=== PATIENT | female | born 1985 | race Caucasian/White ===

== ENCOUNTER → 2016-11-21 | Outpatient (CLI) | payer OTHER | LOC: FIMAGING 10:27 | PROVIDERS: ATTEND Obstetrics & Gynecology | DX: Z34.82 Encounter for supervision of other normal pregnancy, second trimester (principal); Z3A.19 19 weeks gestation of pregnancy ==

== ENCOUNTER 2018-03-26 08:20 | Day surgery (SDC) | payer OTHER ==
--- NOTE | 2018-03-23 14:58 | GHP ---
[f rep st] PREOP HISTORY AND PHYSICAL DATE OF ADMISSION: 03/26/2018 ADMITTING DIAGNOSIS: Missed at 9 weeks and 3 days. HISTORY OF PRESENT ILLNESS: Patient is a 33-year-old 4, para 2-0-1-2 at 10 weeks 5 days by last menstrual period 01/04/2018. The patient presented for her new OB visit. She has previous uncomplicated vaginal deliveries x2. Denies any spotting, leakage of fluid, vaginal bleeding, or cramping at this time. She is tolerating vitamins. Reviewed initial labs and all normal. Genetic testing is pending. Pap, chlamydia, and gonorrhea cultures collected. A bedside ultrasound was done in the office and no heart rate was noted and size looked less than dates. So a formal ultrasound was done, both transabdominally and transvaginally, that revealed a single intrauterine at 9 weeks and 3 days, size less than dates by 9 days, with no heart rate. Previous ultrasound on 03/06 showed a single living IUP with heart rate 167 beats per minute, size less than days by 3 days, but the yolk sac did appear partially collapsed. Prior to that, an ultrasound was done on showing a single living IUP with a heart rate of 84 beats per minute, size less than days by 6 days. The patient was given condolences ad discussed this was consistent with a missed AB. The patient is A positive. Treatment options were discussed including conservative management with observation versus medical management with Cytotec versus surgical management, suction D and C. The patient discussed options with her , Herman, and called my office stating she wanted a D&C. Miscarriage precautions were given to the patient. PAST OB HISTORY: In 2013, she had a SAB that required a D and C. In 2014, she delivered a viable male , via vaginal delivery at 39 weeks 6 days, weighing 6 pounds 10 ounces. In 2014, she had another viable male infant, vaginal delivery, born at 38 weeks and 4 days, measuring 6 pounds 6 ounces. 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 Cycles every 28 days for 4 days. LMP is 01/04/2018. She had a positive test 02/26/2018. Denies any abnormal pap smears and exposure to any STDs. CURRENT MEDICATIONS: Include vitamins, DHEA, B12 supplement. ALLERGIES: No known drug allergies. PAST MEDICAL HISTORY: Viral meningitis age 15. PAST SURGICAL HISTORY: D and C secondary to SAB in 2013; right shoulder surgery in 2004. PAST FAMILY HISTORY: Paternal grandfather from lung cancer. SOCIAL HISTORY: Patient is . She lives with her and their 2 sons. She denies a history of tobacco or illicit drug use and prior to had social alcohol use about 2 times a week. 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 REVIEW OF SYSTEMS: 10-point review of systems is negative. Pertinent positives noted in HPI. LABORATORY: Quant HCG of 52,441 on 02/26 and 57,649 on 02/28. A positive, antibody negative. H and H, 14.9 and 43.1. Platelets 240. Hepatitis surface antigen negative. HIV negative. Rubella immune. RPR nonreactive. PHYSICAL EXAMINATION: VITAL SIGNS: Stable. Patient is afebrile. GENERAL APPEARANCE: Well-nourished, well-developed female, alert, oriented x3 in no apparent distress. SKIN: Warm, dry, without rash. LUNGS: Clear to auscultation. CARDIOVASCULAR: Regular rate and rhythm. ABDOMEN: Soft, nontender, nondistended. PELVIC: There is no active bleeding noted. Cervix is closed. EXTREMITIES: Normal to inspection without calf tenderness or edema. ASSESSMENT/PLAN: Patient is a 33-year-old 4, para 2-0-1-2, with a Missed at 9 weeks 3 days. 1. Admit to labor and delivery for suction D&C. 2. Bedside consents were obtained. We discussed risks of the procedure including, but not limited to, bleeding, infection, and risk of uterine perforation. The patient understands all risks at this time and wants to proceed with surgery. 3. Patient is A positive. No RhoGAM is needed. 4. Antibiotics continuity tester to OR. 5. SCDs for DVT prophylaxis. /[id number]/MODL MTDD
[2018-03-26] MEDS ORDERED: LR 1,000 ML IV ONE (08:59)
[2018-03-26] MEDS ORDERED: DOXYCYCLINE HYCLATE 100 MG CAP/TAB PO ONE ×2 (08:59)
--- NOTE | 2018-03-26 09:57 | PDHPUP ---
History & Physical Update H&P update statement: This history and physical update is based on an assessment of the patient which was completed after admission or registration (within 24 hours), but prior to the surgery/procedure. H&P update: H&P reviewed & patient examined, no change in patient's condition since H&P completed
[2018-03-26] MEDS ORDERED: MIDAZOLAM 2 MG/2 ML VIAL ONE (10:59)
[2018-03-26] MEDS ORDERED: fentaNYL 100 MCG/2 ML INJ ONE ×2 (11:13→12:06)
[2018-03-26] MEDS ORDERED: PROPOFOL/EMULSION 500 MG/50 ML BOTTLE IV ONE (11:13)
[2018-03-26] MEDS ORDERED: DEXAMETHASONE 4 MG/ML VIAL ONE ×2 (11:51)
[2018-03-26] MEDS ORDERED: LIDOCAINE 2% 5 ML SDV ONE (11:51)
[2018-03-26] MEDS ORDERED: KETOROLAC 30 MG/1 ML SDV ONE (11:51)
[2018-03-26] MEDS ORDERED: ONDANSETRON 4 MG/2 ML VIAL ONE (11:51)
--- NOTE | 2018-03-26 11:57 | POSTOPPROG ---
Post Op Note Date of Operation: 03/26/18 Surgeon: Tammy Love Qa Test Lead: None Anesthesiologist: Jake Ojeda Anesthesia: IV Sedation, LMA Pre-op Diagnosis: Missed Ab at 9 3/7 wks Post-op Diagnosis: Missed Ab at 9 3/7 wks Indication: 33 y/o with missed ab at 9 3/7 wks, desires surgical treatment Procedure: Suction D&C Findings: No active bleeding. Cervix dilated 2-3cm. Uterus sounded 10 cm. Mod POCs. Inf/Abcess present in the surg proc area at time of surgery?: No Depth: Organ Space EBL: 50-100 (100 cc) Total fluids administered: 1200 cc LR Complications: None Specimen(s): POCs
[2018-03-26 14:50] VITALS: BP 96/56
[2018-03-26] MEDS ORDERED: HYDROCODONE/APAP 5/325 TAB PO PRN (14:51)
[2018-03-26] MEDS ORDERED: ONDANSETRON 4 MG/2 ML VIAL IVP PRN (14:51)
[2018-03-26] MEDS ORDERED: fentaNYL 100 MCG/2 ML INJ IVP PRN (14:51)
--- NOTE | 2018-03-26 14:57 | PDANEPAE ---
ANE History of Present Illness Missed Ab. ANE Past Medical History - Cardiovascular History Hx Hypertension: No Hx Arrhythmias: No Hx Chest Pain: No Hx Coronary Artery / Peripheral Vascular Disease: No Hx CHF / Valvular Disease: No Hx Palpitations: No - Pulmonary History Hx COPD: No Hx Asthma/Reactive Airway Disease: No Hx Recent Upper Respiratory Infection: No Hx Oxygen in Use at Home: No Hx Sleep Apnea: No Sleep Apnea Screening Result - Last Documented: Negative - Endocrine History Hx Diabetes: No Hypothyroid: No Hyperthyroid: No Obesity: no - Surgical History Prior Surgeries: Knee surgery with general anesthesia. ANE Review of Systems Review of Systems: ANE Patient History - Allergies Allergies/Adverse Reactions: No Known Allergies Allergy (Unverified 10/23/15 18:52) - Home Medications Home Medications: NK [No Known Home Meds] 10/23/15 [Last Taken Unknown] - NPO status NPO Since - Liquids (Date): 03/25/18 NPO Since - Liquids (Time): 22:00 NPO Since - Solids (Date): 03/25/18 NPO Since - Solids (Time): 19:00 - Anes Hx Anes Hx: no prior problems - Smoking Hx Smoking Status: Never smoked - Family Anes Hx Family Anes Hx: neg - N/A ANE Labs/Vital Signs - Vital Signs Blood Pressure: 96/56 Heart Rate: 48 Respiratory Rate: 16 O2 Sat (%): 98 Height: 165.1 cm Weight: 61.235 kg ANE Physical Exam - Airway Neck exam: FROM Mallampati Score: Class 1 Mouth exam: normal dental/mouth exam - Pulmonary Pulmonary: no respiratory distress - Cardiovascular Cardiovascular: regular rate and rhythym - ASA Status ASA Status: I ANE Anesthesia Plan Anesthesia Plan: GA with mask
--- NOTE | 2018-03-26 14:58 | POSTANESTH ---
Post Anesthetic Evaluation Cardiovascular Status: Normal, Stable Respiratory Status: Normal, Stable Level of Consciousness/Mental Status: Can Participate in Eval Pain Control: Adequate, Prn Tx Ordered Nausea/Vomiting Control: Adequate, Prn Tx Ordered Complications Possibly Related to Anesthesia: None Noted
--- NOTE | 2018-03-27 01:46 | GOP ---
[f rep st] OPERATIVE REPORT DATE OF OPERATION: 03/26/2018 SURGEON: Tammy Love DO RETAIL BAKERY MANAGER: None. ANESTHESIA: LMA. ANESTHESIOLOGIST: Jake Ojeda MD. PREOPERATIVE DIAGNOSIS: Missed at 9 weeks and 3 days. POSTOPERATIVE DIAGNOSIS: Missed at 9 weeks and 3 days. PROCEDURE PERFORMED: Suction dilatation and curettage. FINDINGS: Uterus was enlarged to about 9-10 week size. No active bleeding noted. Cervix was dilated to about 2-3 cm, again with no bleeding. Uterus gently sounded to 9-10 cm. A curved #8 suction curette was used. Moderate products of conception were noticed. Minimal bleeding noted at the end the procedure. Patient is Rh positive. No RhoGAM needed. ESTIMATED BLOOD LOSS: 100 cc. INDICATIONS: Patient is a 33-year-old, 4, para 2-0-1-2, at 10 weeks, 5 days by last menstrual period 01/04/2018. She presented for a new OB visit. She had previous uncomplicated vaginal deliveries x2. Patient just had all her blood work done as well as genetic testing. A bedside ultrasound was done in the office and no heart rate was noted, and size looked less than dates. Formal ultrasound was done both transabdominally and transvaginally which revealed a single IUP at 9 weeks, 3 days, size less than dates by 9 days with no heart rate, consistent with a missed AB. Condolences were given to the patient. We discussed treatment options, including conservative management with observation versus medical management with Cytotec versus surgical management with suction D and C. Patient discussed options with her and called my office stating she wanted a suction D and C. Surgical consents were obtained with the patient at bedside. Discussed risks, benefits, and alternatives of the procedure including but not limited to, bleeding, infection , and risk of uterine perforation. Patient understands all risks of the procedure and wants to proceed at this time. The patient was properly consented. DESCRIPTION OF PROCEDURE: Patient was taken back to the operating room where anesthesia was administered without difficulty. She was then positioned in the dorsal lithotomy position, and prepped and draped in the normal sterile fashion. Once the anesthetic was found to be adequate, a bimanual exam was performed under anesthesia. Uterus was noted to be about 9-10 week size, with no adnexal masses. Next, an open-ended speculum was placed in the vagina. The anterior lip of the cervix was grasped with Allis clamp. Patient was already dilated to 2-3 cm, so no cervical dilation was needed. The uterus was then gently sounded to 9-10 cm. At this time, a size 8 curved suction curette was used. It was connected to suction and placed in the cervix and gently up to the uterus, and a suction curettage was performed. Multiple passes were made with the suction curettage. Next, a sharp curettage was performed. This was done in all 4 quadrants of the uterus until a gritty texture was noted. It was done under ultrasound guidance at the beside. There was a moderate amount of tissue obtained. We then followed with more pass with suction curettage under ultrasound and it appeared that all products of conception were removed with a thin endometrial stripe. Minimal bleeding was noted. After the procedure, all instruments were removed from the vagina, and the cervix appeared hemostatic. Speculum was removed. Patient had received oral doxycycline 100 mg prior to the procedure and again in the PACU. Patient tolerated the procedure well. No complications. All sponge and instrument counts were correct x2. Patient was then taken out of dorsal lithotomy position, awakened, and taken to PACU in stable condition. TOTAL IV FLUIDS: 1200 cc LR. URINE OUTPUT: Patient emptied her bladder prior to the procedure. SPECIMENS: Products of conception. /[id number]/MODL MTDD
--- NOTE | 2018-03-27 15:42 | ASDISCHSUM ---
Discharge Information Plan Status:Home with No Needs Medically Cleared to Leave:03/26/2018 Discharge Date:03/26/2018 02:00 PM CM D/C Disposition:Home, Routine, Self-Care ADT D/C Disposition:Home, Routine, Self-Care Projected Discharge Date:03/26/2018 12:00 AM Transportation at D/C:Self Discharge Delay Reason: Follow-Up Date:03/26/2018 12:00 AM Discharge Slot: Final Diagnosis: Placement Information Patient Contact Information Contact Name:KP Relationship: Address:[address] Work Phone: City:[place] Alternate Phone: [facility]/Zip Code:[place] [address] Email: Financial Information Financial Class:HMO and PPO Plans Primary Plan Desc:[employer] Primary Plan Number:[id number] Secondary Plan Desc: Secondary Plan Number: Assessment Information Intervention Information
== END 2018-03-26 13:10 | disposition home or self-care (01) ==
LOC: FSGY 08:20 → FLD 08:59 → UNDOADMOB 08:59 → FOBOP 13:10
PROVIDERS: ATTEND Obstetrics & Gynecology
PROC: 10D17ZZ Extraction of Products of Conception, Retained, Via Natural or Artificial Opening (ICD-10-PCS; principal; 2018-03-26)
DX: O02.1 Missed abortion (principal); Z3A.09 9 weeks gestation of pregnancy
CPT/HCPCS: J1100; J1885; J2250; J2405; J2704; J3010

== ENCOUNTER 2018-12-30 19:26 | Emergency (ER) | payer OTHER ==
[2018-12-30] MEDS ORDERED: PROMETHAZINE HCL 25 MG/ML INJ IVP ONE (20:12)
[2018-12-30] MEDS ORDERED: NS 1,000 ML IV ONE ×2 (20:12)
--- NOTE | 2018-12-30 20:12 | EDPHY ---
H & P Time Seen by Provider: 12/30/18 19:44 HPI/ROS: Chief complaint. Nausea vomiting HPI. Patient is a 33-year-old female who is 34 weeks . She developed nausea and vomiting this morning. Maybe a low-grade temp to 99 degrees during the day. Unable to keep fluids down despite Zofran twice today. She feels dehydrated. No sore throat or upper respiratory symptoms. No cough for shortness of breath. No chest pain. No abdominal pain cramping. No vaginal bleeding or spotting. Decreased urination but otherwise no urinary symptoms. Patient feels possibly decreased movement today. ROS 10 systems were reviewed and negative with the exception of the elements mentioned in the history of present illness Past Medical/Surgical History: Shoulder surgery, D&C, vaginal delivery x2 Social History: , nonsmoker, no alcohol Smoking Status: Never smoked Physical Exam: General Appearance: Alert well-developed female mild distress vital signs stable Eyes: Pupils equal and round no pallor or injection. ENT, mucous membranes are dry. Pharynx without injection Respiratory: There are no retractions, lungs are clear to auscultation. Cardiovascular: Regular rate and rhythm. Gastrointestinal: Abdomen is soft and nontender, no masses, bowel sounds normal. Gravid uterus but nontender Neurological: Awake and alert, sensory and motor exams grossly normal. Skin: Warm and dry, no rashes. Musculoskeletal: Neck is supple nontender. Extremities symmetrical, full range of motion. Psychiatric: Patient is oriented X 3, there is no agitation. Constitutional: Initial Vital Signs Temperature (C) 37.2 C 12/30/18 19:29 Heart Rate 81 12/30/18 19:29 Respiratory Rate 18 12/30/18 19:29 Blood Pressure 116/68 12/30/18 19:29 O2 Sat (%) 96 12/30/18 19:29 O2 Delivery Mode Room Air Allergies/Adverse Reactions: No Known Allergies Allergy (Verified 12/30/18 19:33) Home Medications: Medication Instructions Recorded Tylenol 12/30/18 Zofran Odt 4 mg (*) 12/30/18 Medical Decision Making Procedures: IV normal saline. Phenergan for nausea vomiting ED Course/Re-evaluation: heart tones 150 I consulted discussed case with Dr. Bennett for OBGYN who sees the patient in the ED Patient had monitoring in the ED which was normal. Patient has been up to the bathroom to urinate. She still nauseated and did have a small emesis. She and I discussed keeping her in the hospital. She would really like to be discharged and follow up with her doc tomorrow. We discussed using Phenergan. She is in agreement Differential Diagnosis: Nausea vomiting with . I considered electrolyte abnormality, urinary traction infection, jeopardy to - Data Points Laboratory Results: Laboratory Results 12/30/18 19:51 12/30/18 19:51 12/30/18 12/30/18 12/30/18 21:30 19:51 19:51 WBC 11.52 10^3/uL H 10^3/uL (3.80-9.50) RBC 4.86 10^6/uL 10^6/uL (4.18-5.33) Hgb 14.9 g/dL g/dL (12.6-16.3) Hct 42.3 % % (38.0-47.0) MCV 87.0 fL fL (81.5-99.8) MCH 30.7 pg pg (27.9-34.1) MCHC 35.2 g/dL g/dL (32.4-36.7) RDW 13.1 % % (11.5-15.2) Plt Count 228 10^3/uL 10^3/uL (150-400) MPV 11.2 fL fL (8.7-11.7) Neut % (Auto) 92.1 % H % (39.3-74.2) Lymph % (Auto) 4.5 % L % (15.0-45.0) Pettis % (Auto) 2.3 % L % (4.5-13.0) Eos % (Auto) 0.3 % L % (0.6-7.6) Baso % (Auto) 0.2 % L % (0.3-1.7) Nucleat RBC Rel Count 0.0 % % (0.0-0.2) Absolute Neuts (auto) 10.61 10^3/uL H 10^3/uL (1.70-6.50) Absolute Lymphs (auto) 0.52 10^3/uL L 10^3/uL (1.00-3.00) Absolute Monos (auto) 0.26 10^3/uL L 10^3/uL (0.30-0.80) Absolute Eos (auto) 0.03 10^3/uL 10^3/uL (0.03-0.40) Absolute Basos (auto) 0.02 10^3/uL 10^3/uL (0.02-0.10) Absolute Nucleated RBC 0.00 10^3/uL 10^3/uL (0-0.01) Immature Gran % 0.6 % % (0.0-1.1) Immature Gran # 0.07 10^3/uL 10^3/uL (0.00-0.10) RBC/WBC/PLT Morphology TNP Platelet Estimate TNP Sodium 132 mEq/L L mEq/L (135-145) Potassium 3.9 mEq/L mEq/L (3.5-5.2) Chloride 102 mEq/L mEq/L (97-110) Carbon Dioxide 21 mEq/l L mEq/l (22-31) Anion Gap 9 mEq/L mEq/L (6-14) BUN 9 mg/dL mg/dL (7-23) Creatinine 0.5 mg/dL L mg/dL (0.6-1.0) Estimated GFR > 60 Glucose 77 mg/dL mg/dL (70-100) Calcium 8.6 mg/dL mg/dL (8.5-10.4) Urine Color YELLOW Urine Appearance MODERATELY TURBID Urine pH 7.0 (5.0-7.5) Ur Specific Seymour 1.008 (1.002-1.030) Urine Protein NEGATIVE (NEGATIVE) Urine Ketones 2+ H (NEGATIVE) Urine Blood NEGATIVE (NEGATIVE) Urine Nitrate NEGATIVE (NEGATIVE) Urine Bilirubin NEGATIVE (NEGATIVE) Urine Urobilinogen NEGATIVE EU EU (0.2-1.0) Ur Leukocyte Esterase NEGATIVE (NEGATIVE) Urine RBC 1-3 /hpf /hpf (0-3) Urine WBC 3-5 /hpf H /hpf (0-3) Ur Epithelial Cells 3+ /lpf H /lpf (NONE-1+) Urine Bacteria 3+ /hpf H /hpf (NONE SEEN) Urine Mucus TRACE /lpf /lpf (NONE-1+) Urine Glucose NEGATIVE (NEGATIVE) Medications Given: Discontinued Medications Sodium Chloride (Ns) 1,000 mls @ 0 mls/hr IV EDNOW ONE; Wide Open PRN Reason: Protocol Stop: 12/30/18 20:13 Last Admin: 12/30/18 20:18 Dose: 1,000 mls Sodium Chloride (Ns) 1,000 mls @ 0 mls/hr IV EDNOW ONE; Wide Open PRN Reason: Protocol Stop: 12/30/18 20:13 Last Admin: 12/30/18 20:18 Dose: 1,000 mls Ondansetron HCl (Zofran) 4 mg IVP EDNOW ONE Stop: 12/30/18 21:21 Last Admin: 12/30/18 21:22 Dose: 4 mg Promethazine HCl (Phenergan) 12.5 mg IVP EDNOW ONE Stop: 12/30/18 20:13 Last Admin: 12/30/18 20:19 Dose: 12.5 mg Promethazine HCl (Phenergan 25 Mg Prepack #4) 1 btl TAKEHOME EDNOW ONE Stop: 12/30/18 21:56 Last Admin: 12/30/18 22:16 Dose: 1 btl Departure - Departure Disposition: Home, Routine, Self-Care Clinical Impression: Vomiting Qualifiers: Vomiting type: unspecified Vomiting Intractability: unspecified Nausea presence : with nausea Qualified Code(s): R11.2 - Nausea with vomiting, unspecified Condition: Good Instructions: Acute Nausea and Vomiting (ED) Additional Instructions: Frequent, small sips fluids while nauseated. Gradual diet advancement Phenergan 1 pill every 4-6 hours as needed for nausea. May use Zofran in addition Return for worsening symptoms tonight Recheck with your regular physician tomorrow without fail Referrals: Vielka Mayer MD [Primary Care Provider] - As per Instructions Ace Bennett MD [Medical Doctor] - 1 day without fail
[2018-12-30 20:48] LABS: PLATELET COUNT 228 10^3/uL (150-400)
[2018-12-30] MEDS ORDERED: ONDANSETRON 4 MG/2 ML VIAL IVP ONE (21:20)
[2018-12-30] MEDS ORDERED: PROMETHAZINE 25 MG PREPACK #4 BTL TAKEHOME ONE (21:55)
[2018-12-30 22:10] VITALS: BP 106/49
== END 2018-12-30 22:12 | disposition home or self-care (01) ==
DX: O21.9 Vomiting of pregnancy, unspecified (principal); O99.283 Endocrine, nutritional and metabolic diseases complicating pregnancy, third trimester; Z3A.34 34 weeks gestation of pregnancy
CPT/HCPCS: 96374; J2405; J2550

== ENCOUNTER 2019-01-23 21:45 | Inpatient (IN) | payer OTHER ==
[2019-01-23] MEDS ORDERED: AMMONIA AROMATIC 1 EACH AMP IH PRN (22:32)
[2019-01-23] MEDS ORDERED: TERBUTALINE SULFATE 1 MG/ML VIAL IV PRN (22:32)
[2019-01-23] MEDS ORDERED: OLIVE OIL 118 ML BTL MISC PRN (22:32)
[2019-01-23] MEDS ORDERED: OXYTOCIN/RINGERS LACTATE 1,000 ML IV PRN (22:32)
[2019-01-23] MEDS ORDERED: MISOPROSTOL 200 MCG TAB PO PRN (22:32)
[2019-01-23] MEDS ORDERED: IBUPROFEN 600 MG TAB PO PRN (22:32)
[2019-01-23] MEDS ORDERED: LIDOCAINE 1% 300 MG/30 ML SDV SC PRN (22:32)
[2019-01-23] MEDS ORDERED: LR 1,000 ML IV PRN (22:32)
[2019-01-23] MEDS ORDERED: EPSOM SALT 454 GM TP PRN (22:32)
--- NOTE | 2019-01-23 22:34 | PDGENHP ---
History and Physical History and Physical: Care: [facility] HPI: Ivett Hutton is a 33yo with IUP@ 37-0 weeks that presents to L&D with complaints of contractions since this morning around 10, but worsening since 5pm. She reports LOF @ 2115- large gush of fluid in the car on the drive here. She denies any VB. Reports +FM EDC: 02/13/2019 which is based on Ultrasound at 6 weeks. Her is complicated by: JUANA to FCM @ 34wks, AMA, abnormal 1hr GTT- 3 hr NL Review of Systems: Constitutional: Denies any fever, chills, or fatigue HEENT: denies any visual changes, difficulty swallowing, hearing loss Cardiovascular: Denies any chest pain, palpitations, leg swelling Respiratory: denies any cough, wheezing, or shortness of breathe GI: Denies any nausea, vomiting, diarrhea, constipation : denies any dysuria, urgency, frequency, vaginal bleeding Musculoskeletal: denies any muscle or bone pain Skin: denies any rashes Neuro: denies any headache, seizures, lightheadedness, dizziness, or loss of consciousness Psychiatric: denies any depression, anxiety, or SI/HI thoughts HISTORY: Previous OB history: x2, EAB x1, SAB x2 Past medical history: noncontributory Past surgical history:shoulder surgery 2004 Social: Denies any alcohol, tobacco, or drug use. to Herman, had 2 sons. 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 [place] Family history: Not relevant Medications: PNV, folate, fish oil, vitamin B Allergies (list reaction): NKDA LABS: Rh: A+ ABS: Neg Rubella:Immune HbsAg: NR HIV: NR VDRL: NR 1hr: 141- 3hr NL GC: Neg Chlamydia: Neg Pap: Normal GBS: negative PHYSICAL EXAM: Constitutional: WN, A&Ox3 HEENT: normocephalic atraumatic, supple Skin: Warm, dry, intact Heart: RRR, no murmur Chest: CTA-B Abdomen: Soft, nontender, gravid SVE: 4/50/-2 Extremities: no edema, negative homans sign Neuro: grossly normal Psych: normal affect assessment: FHT baseline 135 +accels, no decels, moderate variability Contractions: toco q q2-4 Assessment: * [id number] with IUP@ 37-0wks * Active labor * SROM - clear * GBS Negative * Cat 1 FHR tracing Plan: * Admit to L&D * PATTY per pt request * augmentation PRN * anticipate Today's visit was approximately 30 min, of which >50% of visit 20 min, was spent face to face with pt on direct counseling/coordination of care.
[2019-01-23 22:47] LABS: PLATELET COUNT 215 10^3/uL (150-400)
[2019-01-23] MEDS ORDERED: BUPIVACAINE 0.25% 10 ML SDV ONE ×2 (22:49→23:33)
[2019-01-23] MEDS ORDERED: fentaNYL 2MCG/ML/BUP 0.1% RTU 100 ML EP SCH (23:00)
[2019-01-23] MEDS ORDERED: LIDOCAINE 1% 300 MG/30 ML SDV ONE (23:29)
[2019-01-23] MEDS ORDERED: MISOPROSTOL 200 MCG TAB ONE (23:29)
[2019-01-23] MEDS ORDERED: TERBUTALINE SULFATE 1 MG/ML VIAL ONE (23:29)
[2019-01-23] MEDS ORDERED: OLIVE OIL 118 ML BTL MISC ONE (23:29)
[2019-01-23] MEDS ORDERED: OXYTOCIN 10 UNIT/ML VIAL ONE (23:29)
[2019-01-23] MEDS ORDERED: AMMONIA AROMATIC 1 EACH AMP IH ONE (23:29)
[2019-01-23] MEDS ORDERED: fentaNYL 200 MCG, BUPIVACAINE 0.5% 20 ML in NS 100 ML EP SCH (23:30)
[2019-01-24] MEDS ORDERED: HYDROCORTISONE 0.5% CREAM TP PRN (00:49)
[2019-01-24] MEDS ORDERED: SIMETHICONE 80 MG TAB CHEW PO PRN (00:49)
--- NOTE | 2019-01-24 00:52 | OBDEL ---
Info Type: Vaginal Presentation at Delivery: Vertex L&D Analgesia/Anesthesia Type: Epidural GBS+: No Intrapartum Medications: Generic Name Dose Route Start Last Admin Trade Name Freq PRN Reason Stop Dose Admin Ibuprofen 600 mg 01/23/19 22:32 01/24/19 00:50 Motrin PO 600 mg ONCE PRN Administration post , pain Indications for Delivery: Spontaneous Labor, SROM Vaginal Delivery - Delivery Provider Delivery Physician/CNM: Marry Villa - Labor and Delivery Onset of Contractions Date: 01/23/19 Onset of Contractions Time: 21:00 Onset of Contractions Type: Spontaneous Rupture of Membranes Date: 01/23/19 Rupture of Membranes Time: 21:30 Rupture of Membranes Type: Spontaneous Amniotic Fluid Color: Clear Dilation Complete Date: 01/24/19 Dilation Complete Time: 00:10 Placenta Delivery Date: 01/24/19 Placenta Delivery Time: 00:20 Total Hours of Labor: 3 Vaginal Sponge Count Correct: Yes Vaginal Needle Count Correct: Yes Vaginal Sweep Performed: Yes EBL: 200 Delivery Events: None Data CAROLINE: 02/14/19 Gestational Age: 37 week(s) and 0 day(s) ICD10 Worksheet Patient Problems: Problems Problem Status Onset Missed with demise before 20 completed weeks of gestation Acute
[2019-01-24] MEDS: ACETAMINOPHEN 325 MG TAB PO PRN ×3 (06:08→17:53)
[2019-01-24] MEDS: IBUPROFEN 600 MG TAB PO PRN ×3 (07:10→18:30)
[2019-01-24] MEDS: DOCUSATE SODIUM 100 MG CAP PO PRN ×2 (11:27→20:03)
[2019-01-24] MEDS: oxyCODONE IR 5 MG TAB PO PRN ×3 (11:28→20:03)
[2019-01-25] MEDS: ACETAMINOPHEN 325 MG TAB PO PRN ×2 (00:01→05:57)
[2019-01-25] MEDS: IBUPROFEN 600 MG TAB PO PRN ×2 (00:01→05:57)
[2019-01-25] MEDS: DOCUSATE SODIUM 100 MG CAP PO PRN (08:53)
--- NOTE | 2019-01-25 09:27 | OBGCSDC ---
General Delivery Information - General Info : 5 Para: 3 Abortions: 2 Type: Vaginal L&D Analgesia/Anesthesia Type: Epidural Admission Date: 01/23/19 Labs: Patient ABO/Rh A POSITIVE 01/23/19 22:30 Hct 36.4 % (38.0-47.0) L 01/23/19 22:30 - Hospital Course : 01/25/19 09:26 S) Pt doing well, reports min pain and bleeding. she is ambulating and voiding without difficulty. She is . She desires discharge home today. O) VSS, afebrile constitutional: WNF, A&Ox3 HEENT: normocephalic, atraumatic, supple Heart: RRR, No murmur Chest: CTA-B Breasts: soft, nontender, not engorged, nipples Abdomen: Soft, nontender Uterus: Firm at U-3 Lochia: Minimal rubra Perineum: Intact, healing well Extremities: Trace edema, and negative Roberto's sign Neuro: Grossly normal A) 33-year-old S/P PPD#1 P) Discharge home today Continue Pelvic rest x6wks Discussed danger signs (infection, preeclampsia, depression, heavy bleeding, etc ) RTO in 2/4/6 weeks 01/25/19 09:26 01/25/19 09:27 Vaginal - Delivery Provider Delivery Physician/CNM: Marry Villa - Diagnosis Labor: Spontaneous Rupture of Membranes Type: Spontaneous Amniotic Fluid Color: Clear Delivery Events: None - Delivery EBL: 200 Data CAROLINE: 02/14/19 Gestational Age: 37 week(s) and 1 day(s) [place] Delivery Date: 01/24/19 Delivery Time: 00:12 Sex of : Female [place] Weight (gm): 2575 g Score (1 Min): 8 Score (5 Min): 9
[2019-01-25 09:33] VITALS: BP 112/74
== END 2019-01-25 09:52 | disposition home or self-care (01) | DRG 807 ==
LOC: FLD 21:45 → OBSVTOIN 22:33 → FOB 01-24 02:22
PROVIDERS: ADMIT Advanced Practice Midwife; ATTEND Advanced Practice Midwife
PROC: 10E0XZZ Delivery of Products of Conception, External Approach (ICD-10-PCS; principal; 2019-01-24)
DX: O80 Encounter for full-term uncomplicated delivery (principal); Z3A.37 37 weeks gestation of pregnancy; Z37.0 Single live birth
CPT/HCPCS: J2590; J3010; J3105